=== PATIENT | female | born 1960 | race Caucasian/White ===

== ENCOUNTER → 2018-02-08 | Outpatient (CLI) | payer BC ==
[~2018-02-08] MED LIST: ALPRAZOLAM ER1 MG PO; ALPRAZOLAM1 MG PO; AMITRIPTYLINE H50 M2 PO; BAYER CHEWABLE81 MG PO; DECONGESTANT NA15 ML NASAL; EFFIENT10 MG PO; HYDROCODON-ACE1 EAC5 PO; LIPITOR40 MG PO; METOPROLOL SUCC50 MG PO; NITROGLYCERIN0.4 MG SL; SERTRALINE20 MG/1 ML PO; TYLENOL325 MG PO; XANAX 0.5 MG0.5 M1 PO; ZANAFLEX4 MG PO
--- NOTE | ~2018-02-08 | 2DMMODE ---
[facility] [place] [address] 2 D/M-MODE ECHOCARDIOGRAM Name: VERENA ARTLENE Room #: REG CL [facility]#: [id number] Admission: 02/08/18 Attend Phys: Kwan Damon Discharge: Date of : 56 Date of Service: 02/08/18 1644 Report #: [id number] THIS REPORT FOR: //name// APPROVED REPORT Study performed: 02/08/2018 14:31:10 EXAM: Comprehensive 2D, Doppler, and color-flow Echocardiogram Patient Location: Out-Patient BSA: 1.93 HR: 87 bpm BP: 115/76 mmHg Rhythm: NSR Other Information Study Quality: Adequate/body habitus Indications Chest pain, CAD 2D Dimensions RVDd: 26.87 mm IVSd: 13.89 (7-11mm) LVOT Diam: 21.09 (18-24mm) LVDd: 34.86 mm PWd: 10.23 (7-11mm) Ascending Ao: 34.41 (22-36mm) LVDs: 23.73 (25-40mm) Aortic Root: 31.21 mm Volumes Left Atrial Volume (Systole) Single Plane 4CH: 24.26 mL Single Plane 2CH: 33.08 mL LA ESV Index: 16.00 mL/m2 Aortic Valve AoV Peak Nick.: 1.38 m/s AO Peak Gr.: 7.60 mmHg LVOT Max P.42 mmHg LVOT Max V: 1.16 m/s DIMA Vmax: 2.95 cm2 Mitral Valve E/A Ratio: 0.8 MV Decel. Time: 244.89 ms MV E Max Nick.: 0.67 m/s MV A Nick.: 0.80 m/s [facility] [place] [address] 2 D/M-MODE ECHOCARDIOGRAM Name: VERENA ART Room #: [facility]#: [id number] Admission: 02/08/18 Attend Phys: Kwan Damon Discharge: Date of : 56 Date of Service: 02/08/18 1644 Report #: [id number] MV PHT: 71.02 ms IVRT: 79.58 ms Pulmonary Valve PV Peak Nick.: 1.06 m/s PV Peak Gr.: 4.47 mmHg Tricuspid Valve RAP Estimate: 5.00 mmHg Left Ventricle The left ventricle is normal size. There is normal LV segmental wall motion. Mild concentric left ventricular hypertrophy. Left ventricular systolic function is normal. LVEF is 65%. Mild diastolic dysfunction is present (impaired relaxation pattern). Right Ventricle The right ventricle is normal size. The right ventricular systolic function is normal. Atria The left atrium size is normal. The right atrium size is normal. Aortic Valve The aortic valve is normal in structure. No aortic regurgitation is present. There is no aortic valvular stenosis. Mitral Valve The mitral valve is normal in structure. There is no mitral valve regurgitation noted. No evidence of mitral valve stenosis. Tricuspid Valve Tricuspid valve is not well visualized. No tricuspid valve regurgitation was detected. Unable to assess PA pressure. Pulmonic Valve Pulmonic valve is not well visualized. Great Vessels The aortic root is normal in size. The ascending aorta is normal in size. IVC is normal in size and collapses >50% with inspiration. Pericardium There is no pericardial effusion. [facility] [place] [address] 2 D/M-MODE ECHOCARDIOGRAM Name: VERENA ART ROSARIO Room #: REG CL [facility]#: [id number] Admission: 02/08/18 Attend Phys: Kwan Damon Discharge: Date of : 56 Date of Service: 02/08/181643 Report #: [id number] <Conclusion> The left ventricle is normal size. LVEF is 65%. The aortic valve is normal in structure. The mitral valve is normal in structure. Tricuspid valve is not well visualized. No tricuspid valve regurgitation was detected. Unable to assess PA pressure. Pulmonic valve is not well visualized. There is no pericardial effusion. <ELECTRONICALLY SIGNED> By: Kwan Kidd MD 02/08/181643 43 1644 Kwan Kidd MD /INF
== END ==
LOC: CV 08:20
DX: I25.10 Atherosclerotic heart disease of native coronary artery without angina pectoris (principal); R06.09 Other forms of dyspnea

== ENCOUNTER → 2019-11-15 | Outpatient (CLI) | payer BC | LOC: RAD 11:58 | PROVIDERS: ATTEND Pain Medicine Interventional Pain Medicine | DX: M47.816 Spondylosis without myelopathy or radiculopathy, lumbar region (principal); M41.86 Other forms of scoliosis, lumbar region; I70.0 Atherosclerosis of aorta ==